=== PATIENT | male | born 1960 | race American Indian/Alaskan Native ===

== ENCOUNTER 2019-09-06 06:25 | Observation (INO) | payer BC ==
[2019-09-06] MEDS ORDERED: SODIUM CHLORIDE 0.9% 500 ML 500 ML ONE (06:55)
[2019-09-06] MEDS ORDERED: ASPIRIN EC 325 MG TAB PO ONE ×2 (06:55)
[2019-09-06] MEDS: SODIUM CHLORIDE 0.9% 500 ML 500 ML IV SCH ×2 (07:26→10:15)
[2019-09-06 07:38] LABS: INR 1.01 (0.87-1.13)
[2019-09-06 07:39] LABS: Partial Thromboplastin Time 29.7 Sec. (24.2-36.6)
[2019-09-06] MEDS ORDERED: HEPARIN/NS 5000 UNIT/500ML 1,000 ML IR ONE (09:58)
[2019-09-06] MEDS ORDERED: HEPARIN 10,000 UNITS/10 ML VIAL ONE ×2 (09:58→10:54)
[2019-09-06] MEDS ORDERED: MIDAZOLAM 2 MG/2 ML INJ ONE (09:58)
[2019-09-06] MEDS ORDERED: LIDOCAINE (2%) 20 MG/1 ML VIAL 20 ML MDV INFILTRATI ONE (09:59)
[2019-09-06] MEDS ORDERED: fentaNYL 100 MCG/2 ML INJ ONE (09:59)
[2019-09-06] MEDS ORDERED: NITROGLYCERIN SYRINGE 3 ML ONE (10:43)
--- NOTE | 2019-09-06 10:54 | Short Stay Summary ---
<GLADYS ACOSTA - Last Filed: 09/06/19 11:11> Short Stay Documentation Date of service: 09/06/19 - History H&P: obtained from office - Allergies and Medications Current Medications: Allergies No Known Allergies Allergy (Verified 09/06/19 06:49) Home Medications Medication Instructions Recorded Confirmed Last Taken Type Aspirin EC [Halfprin EC] 81 mg PO DAILY 09/06/19 09/06/19 09/01/19 History 81 mg Metformin HCl [metFORMIN] 1,000 mg PO BID 09/06/19 09/06/19 09/05/19 History 1000 mg Pravastatin [Pravachol] 20 mg PO HS 09/06/19 09/06/19 09/01/19 History 20 mg atenoloL [Tenormin] 25 mg PO HS 09/06/19 09/06/19 09/05/19 History 25 mg glipiZIDE [Glucotrol] 10 mg PO BID 09/06/19 09/06/19 09/05/19 History 10 mg lisinopriL [Zestril TAB] 5 mg PO HS 09/06/19 09/06/19 09/05/19 History 5 mg Active Medications Sodium Chloride (Nacl 0.9% 500 Ml) 500 mls @ 50 mls/hr IV DIRECT YARIEL Stop: 09/06/19 16:59 Last Admin: 09/06/19 10:15 Dose: 50 mls/hr Documented by: - Brief post op/procedure progress note Date of procedure: 09/06/19 Pre-op diagnosis: CAD Post-op diagnosis: same Procedure: LHC with PCI - see dictated cath report Anesthesia: local Estimated blood loss: none Condition: stable - Disposition Condition at discharge: Good Disposition: DC-01 TO HOME OR SELFCARE - Discharge Diagnoses (1) CAD (coronary artery disease) Status: Chronic (2) Stented coronary artery Status: Chronic (3) HTN (hypertension) Status: Chronic (4) Hyperlipidemia Status: Chronic (5) Diabetes Status: Chronic (6) Sinus bradycardia Status: Acute Comment: d/c home atenolol, hold BB Short Stay Discharge Plan Activity: advance as tolerated Diet: low fat, low cholesterol, low salt, diabetic Wound: open to air, keep clean and dry, per your surgeon's advice Follow up with: TERENCE SIMPSON MD [Primary Care Provider] - 7 Days DONALDO CARBAJAL MD [Staff Physician] - 7 Days (Telephone visit, 09/23/2019 @ 10:30AM) Prescriptions: AtorvaSTATin [Lipitor] 40 mg PO QHS #90 tablet Prasugrel [Effient] 10 mg PO QDAY #90 tablet lisinopriL [Zestril TAB] 10 mg PO QDAY #90 tablet <TUYET PARKS - Last Filed: 09/07/19 09:04> Short Stay Documentation - Allergies and Medications Current Medications: Allergies No Known Allergies Allergy (Verified 09/06/19 06:49) Home Medications Medication Instructions Recorded Confirmed Last Taken Type Aspirin [Aspirin BABY CHEW TAB] 81 mg PO QDAY tab.chew 09/06/19 Unknown Rx AtorvaSTATin [Lipitor] 40 mg PO QHS #90 tablet 09/06/19 Unknown Rx Metformin HCl [metFORMIN] 1,000 mg PO BID 09/06/19 09/06/19 09/05/19 History 1000 mg Prasugrel [Effient] 10 mg PO QDAY #90 tablet 09/06/19 Unknown Rx glipiZIDE [Glucotrol] 10 mg PO BID 09/06/19 09/06/19 09/05/19 History 10 mg lisinopriL [Zestril TAB] 10 mg PO QDAY #90 tablet 09/06/19 Unknown Rx Active Medications Acetaminophen/Hydrocodone Bitart ([place] 5/325) 1 each PO Q6H PRN PRN Reason: Pain, Moderate (4-6) Last Admin: 09/06/19 22:23 Dose: 1 each Documented by: Aspirin (Baby Aspirin) 81 mg PO QDAY [facility] Atorvastatin Calcium (Lipitor) 40 mg PO QHS [facility] Last Admin: 09/06/19 22:23 Dose: 40 mg Documented by: Lisinopril (Zestril) 10 mg PO QDAY [facility] Last Admin: 09/06/19 23:23 Dose: Not Given Documented by: Prasugrel (Effient) 10 mg PO QDAY [facility] - Discharge Diagnoses (1) CAD (coronary artery disease) Status: Chronic Qualifiers: Coronary Disease-Associated Artery/Lesion type: grayling artery [place] vs. transplanted heart: grayling heart Associated angina: with stable angina Qualified Code(s): I25.118 - Atherosclerotic heart disease of grayling coronary artery with other forms of angina pectoris (2) Diabetes Status: Chronic Qualifiers: Diabetes mellitus type: type 2 Diabetes mellitus complication status: without complication (3) HTN (hypertension) Status: Chronic Qualifiers: Hypertension type: essential hypertension Qualified Code(s): I10 - Essential (primary) hypertension (4) Hyperlipidemia Status: Chronic Qualifiers: Hyperlipidemia type: mixed hyperlipidemia Qualified Code(s): E78.2 - Mixed hyperlipidemia Short Stay Discharge Plan Special Instructions: hold Metformin (for two days)
[2019-09-06] MEDS ORDERED: PRASUGREL 10 MG TAB PO ONE (10:58)
[2019-09-06] MEDS ORDERED: ALUM-MAG HYDROXIDE-SIMETHICONE 200-200-20MG/5ML ORAL LIQD 30 ML ONE (10:58)
--- NOTE | 2019-09-06 11:08 | Cardiac Catherization Report ---
CARDIAC CATHETERIZATION REFERRING PHYSICIAN: Dr. Shani Jacques INDICATION FOR PROCEDURE: The patient is a very pleasant 58-year-old -[place] gentleman with multiple risk factors, history of PCI with episodic chest pain/unstable angina, abnormal treadmill stress test, on multiple antianginals, referred for left heart catheterization. Risks, benefits, potential alternatives explained at length prior to obtaining informed consent. PROCEDURE IN DETAIL: It should be noted that he has had a radial procedure in the past, which failed. We chose a groin approach, 8 mL of 2% lidocaine used to anesthetize the right groin. A standard 6-Dutch sheath placed in the right common femoral artery via modified Seldinger technique. All exchanges performed to exchange a J-tip guidewire. A JL3.5 catheter was used to engage the left main. No dampening or ventricularization. Cineangiography performed in multiple projections. JR4 catheter used to cross the aortic valve under fluoroscopic guidance. Left ventriculography in 30 VILLAFANA and 30 TIGIST projections via hand injections, catheter flushed. Manual pullback performed with continuous pressure monitoring. Catheter used to engage the right coronary. No dampening or ventricularization. Cineangiography performed in all projections. DATA: Aortic pressure is 140/60, LV pressure is 140, LVEDP of 16 mmHg, left ventriculography reveals normal systolic performance with estimated ejection fraction of 55-60%. No evidence of aortic stenosis. Tele reveals sinus bradycardia throughout. Heart rate in the 40s and 50s. CORONARY ANATOMY: This is a codominant system. Left main without significant disease, bifurcates left anterior descending and left circumflex. Left circumflex, moderate sized vessel, courses AV groove. There is an eccentric long complex 80-90% stenosis in the mid left circumflex. This is the culprit lesion. LAD is a moderate sized vessel, courses anterior intergroove, wraps around the apex. Stents in the mid LAD are widely patent, no obstructive disease in the LAD or diagonal system. Right coronary is a moderate sized vessel, comes off high off the right coronary cusp. No obstructive disease identified in the right coronary. At this point, given the patient's presentation with multiple episodes of chest tightness/chest pain, abnormal stress test on despite multiple antianginals, we decided to proceed with PCI of culprit mid left circumflex. At this point, heparin is given. Abnormal ACT is confirmed. We used an EBU 3.75 guide to engage the left main. A [place] wire used to cross the lesion without difficulty. I placed a 2.75 x 26 Resolute Bradford stent across the lesion and deployed at 12 KIERSTEN for 30 seconds. Excellent angiographic result. Next, intravascular ultrasound was performed, multiple passes were made and the stent reveals a well-opposed, well expanded stent. No complications. Final angiogram reveals excellent result. The patient is loaded with Effient. The patient has already been loaded with aspirin. The patient is clinically stable, chest pain free. I directly supervised the administration of moderate sedation from 10:20 a.m. to 10:55 a.m. CONCLUSIONS: 1. Severe culprit single vessel coronary artery disease, a 90% complex long mid left circumflex. A. Successful IVUS guided PCI with placement of drug-eluting stent (Resolute 2.75 x 26) with excellent final angiographic and ultrasonographic result. B. Patent LAD stents with nonobstructive disease throughout the remainder of the coronary tree. 2. Normal left ventricular systolic performance, estimated ejection fraction of 55-60%. No evidence of aortic stenosis. 3. Sinus bradycardia throughout. The patient is clinically stable, chest pain free. Hold atenolol for now, aggressive primary and secondary prevention measures, standard groin care post-sheath once ACT less than 170. Results of the procedure were explained at length to the patient. All questions and concerns were addressed. Likely discharge in a.m. Follow up with Dr. Vicky Jacques in the office. JOB# [id number] SBM/NTS
[2019-09-06] MEDS: LISINOPRIL 10 MG TAB PO SCH ×2 (13:21→23:23)
[2019-09-06] MEDS ORDERED: HYDROcodone/ACETAMINOPHEN 5-325 MG TAB PO ONE (13:54)
[2019-09-06] MEDS ORDERED: HYDROcodone/ACETAMINOPHEN 5-325 MG TAB ONE (14:22)
[2019-09-06] MEDS ORDERED: HYDROcodone/ACETAMINOPHEN 5-325 MG TAB PO PRN (22:04)
[2019-09-07 05:55] LABS: Basophils % (Auto) 0.2 % (0.0-1.8); Eosinophils # (Auto) 0.1 K/mm3 (0.0-0.4); Eosinophils % (Auto) 1.5 % (0.0-4.3); Hematocrit 40.4 % (35.5-45.6); Hemoglobin 13.4 gm/dl (11.8-15.2); Lymphocytes # (Auto) 0.7 K/mm3 (1.2-5.4); Lymphocytes % (Auto) 9.3 % (13.4-35.0); Mean Corpuscular HGB Conc 33 % (32-34); Mean Corpuscular Volume 84 fl (84-94); Monocytes # (Auto) 0.5 K/mm3 (0.0-0.8); Monocytes % (Auto) 6.5 % (0.0-7.3); Platelet Count 216 K/mm3 (140-440); Red Blood Count 4.82 M/mm3 (3.65-5.03); Red Cell Distribution Width 13.9 % (13.2-15.2)
[2019-09-07 06:08] LABS: Creatine Kinase MB 5.9 ng/mL (0.0-4.0)
[2019-09-07 06:09] LABS: BUN/Creatinine Ratio 21; Blood Urea Nitrogen 19 mg/dL (9-20); Calcium 9.2 mg/dL (8.4-10.2); Hemolysis Index 9
--- NOTE | 2019-09-07 09:07 | XRay Report ---
CHEST 1 VIEW INDICATION: post pci. COMPARISON: None FINDINGS: SUPPORT DEVICES: There is a thin catheter projecting over the upper abdomen and in the midline lower mediastinum of uncertain significance. HEART: Within normal limits. LUNGS/PLEURA: No acute air space or interstitial disease. ADDITIONAL FINDINGS: None. IMPRESSION: 1. No acute findings. Signer Name: Kalen Day MD Signed: 09/07/2019 9:02 AM Workstation Name: [id number]
--- NOTE | 2019-09-07 09:54 | Progress Note ---
Assessment and Plan Patient right groin site shows no hematoma soft patient denies any chest pain labs reviewed advised patient to hold metformin for 48 hours continue aspirin and Effient patient will be discharged home and follow with primary risk control specialist next week - Patient Problems (1) CAD (coronary artery disease) Current Visit: Yes Status: Chronic Qualifiers: Coronary Disease-Associated Artery/Lesion type: cheesh-na artery [place] vs. transplanted heart: cheesh-na heart Associated angina: with stable angina Qualified Code(s): I25.118 - Atherosclerotic heart disease of cheesh-na coronary artery with other forms of angina pectoris (2) Diabetes Current Visit: Yes Status: Chronic Qualifiers: Diabetes mellitus type: type 2 Diabetes mellitus complication status: without complication (3) HTN (hypertension) Current Visit: Yes Status: Chronic Qualifiers: Hypertension type: essential hypertension Qualified Code(s): I10 - Essential (primary) hypertension (4) Hyperlipidemia Current Visit: Yes Status: Chronic Qualifiers: Hyperlipidemia type: mixed hyperlipidemia Qualified Code(s): E78.2 - Mixed hyperlipidemia Subjective Date of service: 09/07/19 Principal diagnosis: cp Interval history: Patient is denying any chest pain post PCI Objective Vital Signs Temp Pulse Pulse Pulse Resp BP Pulse Ox 09/07/19 07:13 54 L 18 117/66 100 09/07/19 04:11 97.9 F 51 L 18 118/62 100 09/07/19 00:10 98.7 F 09/06/19 23:44 72 18 124/61 99 09/06/19 22:23 18 09/06/19 20:56 96 09/06/19 20:51 68 09/06/19 20:04 98.0 F 68 18 129/66 100 09/06/19 18:00 53 L 128/54 99 09/06/19 17:30 51 L 132/60 99 09/06/19 17:26 58 L 09/06/19 17:12 49 L 130/52 99 09/06/19 16:52 46 L 48 L 18 98 09/06/19 16:30 51 L 134/64 99 09/06/19 16:00 45 L 127/63 99 09/06/19 15:55 47 L 99 09/06/19 15:15 48 L 12 128/62 100 09/06/19 15:00 48 L 11 L 132/70 100 09/06/19 14:45 44 L 24 146/73 100 09/06/19 14:33 45 L 21 161/70 09/06/19 14:30 45 L 13 162/74 09/06/19 14:25 45 L 16 161/82 100 09/06/19 14:20 47 L 14 156/63 09/06/19 14:15 48 L 12 164/71 09/06/19 14:13 46 L 18 177/82 09/06/19 14:03 45 L 10 L 168/76 09/06/19 14:00 56 L 12 168/81 95 09/06/19 13:55 49 L 11 L 180/91 94 09/06/19 13:50 47 L 10 L 180/73 09/06/19 13:46 64 11 L 168/80 09/06/19 13:41 45 L 11 L 175/77 09/06/19 13:21 47 L 178/85 09/06/19 13:15 48 L 16 178/85 09/06/19 12:45 47 L 21 164/75 09/06/19 12:15 45 L 12 155/75 99 09/06/19 12:00 45 L 24 161/79 09/06/19 11:45 41 L 12 158/78 09/06/19 11:30 41 L 18 155/78 09/06/19 11:19 97.6 F 44 L 17 175/75 100 - Physical Examination General: Appears Well, No Apparent Distress HEENT: Positive: PERRL Neck: Positive: neck supple Cardiac: Positive: Reg Rate and Rhythm Lungs: Positive: Normal Exam Neuro: Positive: Grossly Intact Abdomen: Positive: Soft /Rectal: Normal Prostate, No Masses Skin: Musculoskeletal: No Fluid Collection, No Pain, Normal Range of Motion Gait: Normal Gait Extremities: Present: normal. Absent: edema - Labs and Meds Cardiac Enzymes 09/07/19 Range/Units 04:59 CK-MB (CK-2) 5.9 H (0.0-4.0) ng/mL CBC 09/07/19 Range/Units 04:59 WBC 7.9 (4.5-11.0) K/mm3 RBC 4.82 (3.65-5.03) M/mm3 Hgb 13.4 (11.8-15.2) gm/dl Hct 40.4 (35.5-45.6) % Plt Count 216 (140-440) K/mm3 Lymph # 0.7 L (1.2-5.4) K/mm3 Luce # 0.5 (0.0-0.8) K/mm3 Eos # 0.1 (0.0-0.4) K/mm3 Baso # 0.0 (0.0-0.1) K/mm3 Comprehensive Metabolic Panel 09/07/19 Range/Units 04:59 Sodium 135 L (137-145) mmol/L Potassium 4.3 (3.6-5.0) mmol/L Chloride 99.3 (98-107) mmol/L Carbon Dioxide 26 (22-30) mmol/L BUN 19 (9-20) mg/dL Creatinine 0.9 (0.8-1.5) mg/dL Glucose 258 H (75-100) mg/dL Calcium 9.2 (8.4-10.2) mg/dL - Imaging and Cardiology Cardiac cath: report reviewed - Telemetry EKG Rhythm: Sinus Rhythm
[2019-09-07] MEDS: LISINOPRIL 10 MG TAB PO SCH (09:56)
[2019-09-07 09:57] VITALS: BP 142/69
[2019-09-07] MEDS ORDERED: PRASUGREL 10 MG TAB PO SCH (10:00)
[2019-09-07] MEDS ORDERED: ASPIRIN 81 MG TAB CHEW PO SCH (10:00)
== END 2019-09-07 12:38 | disposition home or self-care (01) ==
LOC: CATHLABREC 06:25 → 4A 11:01
PROVIDERS: ADMIT Internal Medicine; ATTEND Internal Medicine
DX: I25.10 Atherosclerotic heart disease of native coronary artery without angina pectoris (principal); I10 Essential (primary) hypertension; E11.9 Type 2 diabetes mellitus without complications; E78.5 Hyperlipidemia, unspecified; R00.1 Bradycardia, unspecified; Z95.1 Presence of aortocoronary bypass graft; Z79.84 Long term (current) use of oral hypoglycemic drugs; Z79.82 Long term (current) use of aspirin; Z79.899 Other long term (current) drug therapy
CPT/HCPCS: 36415; 71045; 80048; 82550; 82553; 82962; 84484; 85025; 85610; 85730; 92978; 93005; 93458; A9270; C1753; C1769; C1874; C1887; C1894; C9600; G0378; J1644; J2250; J3010; J7040; 85347; 92928; Q9967

== ENCOUNTER 2020-03-02 06:47 | Day surgery (SDC) | payer BC ==
[2020-03-02] MEDS ORDERED: HEPARIN/NS 5000 UNIT/500ML 1,000 ML IR ONE (07:32)
[2020-03-02] MEDS ORDERED: HEPARIN 10,000 UNITS/10 ML VIAL ONE (07:33)
[2020-03-02 07:38] LABS: BUN/Creatinine Ratio 21; Blood Urea Nitrogen 21 mg/dL (9-20); Calcium 9.6 mg/dL (8.4-10.2); Hemolysis Index 5
[2020-03-02] MEDS ORDERED: ASPIRIN EC 325 MG TAB PO SCH (08:00)
[2020-03-02] MEDS ORDERED: SODIUM CHLORIDE 0.9% 500 ML 500 ML IV SCH (08:00)
[2020-03-02] MEDS: fentaNYL 100 MCG/2 ML INJ ONE ×2 (08:09→08:12)
[2020-03-02] MEDS: MIDAZOLAM 2 MG/2 ML INJ ONE ×2 (08:09→08:12)
[2020-03-02] MEDS: LIDOCAINE (2%) 20 MG/1 ML VIAL 20 ML MDV INFILTRATI ONE ×3 (08:10→08:19)
[2020-03-02] MEDS ORDERED: ATROPINE 0.1% (1 MG/10 ML) CARDIAC SYRINGE ONE (08:15)
--- NOTE | 2020-03-02 09:17 | Cardiac Catherization Report ---
INDICATION FOR PROCEDURE: The patient is a 59-year-old -[place] gentleman with history of known coronary artery disease and intervention of the LAD many years ago and underwent drug-eluting stent placement of the mid left circumflex artery, which showed 90% complex lesion, underwent on 09/06/2019. Presently, the patient is having atypical chest pains and stress EKG showed 2-[address] depressions in the inferolateral leads. Hence, scheduled for cardiac catheterization for definitive diagnosis and treatment. Echocardiogram was unremarkable. DESCRIPTION OF PROCEDURE: The patient was brought to the catheterization laboratory in a fasting condition. The patient was known to have attempted right radial access in the past and procedure could not be completed. Hence groin was used during the last admission. Hence, a right groin access was used to obtain arterial access. The patient was prepared in the standard fashion. The patient was evaluated for moderate sedation and was felt to be an appropriate candidate. Received IV Versed and fentanyl. Subsequently, the patient was prepared with sterile drapes in standard fashion. Local anesthesia was given in the right groin area. Right femoral artery puncture was made using micropuncture needle under fluoroscopy guidance. A 6-[place] sheath was introduced. Subsequently, multipurpose catheter was used to obtain the angiograms of the left ventricle done in VILLAFANA projection using hand injection followed by using JL4 catheter for obtaining the angiograms of the left coronary artery in multiple views. A modified JR4 catheter was used to obtain the angiograms of the right coronary artery. Right coronary artery is arising somewhat high and anterior from the right coronary cusp. At the end of the procedure, angiogram was obtained of the right femoral artery; however, the bifurcation of the common femoral artery was very high. Hence, no closure device was applied. The patient tolerated the procedure well. No untoward complications were noted. During the procedure, the patient was monitored with pulse oximetry, EKG monitoring and hemodynamic monitoring. The patient tolerated the moderate sedation well. At the end of the procedure, the patient is communicating normally. Breathing normally and no focal deficits were noted. The patient's moderate sedation started at 8:12 a.m. and ended at 8:38 a.m. The patient was transferred to the room in stable condition. Findings were explained in detail to the patient. Will be continued on medical therapy and risk factor modification. HEMODYNAMICS: 1. Opening aortic pressure 125/57. Left ventricular pressure 125/21. No gradient across the aortic valve. Estimated ejection fraction 55%. 2. Left ventriculogram done in VILLAFANA projection using hand injection showed normal sized left ventricle with normal contractility. Mitral regurgitation could not be evaluated because of the limited amount of dye injected. Ejection fraction was estimated to be 50-55%. 3. Right coronary artery, as mentioned above, arises high and anteriorly in the right coronary cusp. This is a codominant vessel and angiographically smooth and normal. 4. Left coronary artery arises normally from left coronary cusp. Left main is very short, immediately dividing into LAD and circumflex branches. Very mild 5-10% smooth lesion noted in the distal left main. LAD shows mild 20% ostial lesion. LAD curves around the apex. There is a high mid LAD stent, which which shows very smooth 20% stenosis and there is other second mid LAD stent, which appears to be patent without significant disease. In between the stents, there appears to be 30% smooth stenosis. Circumflex artery shows a long stent in the mid circumflex artery: This is widely patent. Collaterals none. FINAL IMPRESSION: Normal sized left ventricle with normal contractility with widely patent stent in the mid circumflex artery in addition to patent stents in the high mid LAD and mid LAD. [id number] 20-30% mid LAD lesion was noted. At this time, no obstructive lesions were noted. Considering the above angiographic pictures, will be continued on risk factor modification and medical therapy. The patient tolerated the procedure well. No untoward complications were noted. JOB# [id number] MICHEL/EVI ELIZONDO
--- NOTE | 2020-03-02 13:28 | Short Stay Summary ---
Short Stay Documentation Date of service: 03/02/20 - History H&P: obtained from office - Allergies and Medications Current Medications: Allergies No Known Allergies Allergy (Verified 09/06/19 06:49) Home Medications Medication Instructions Recorded Confirmed Last Taken Type Aspirin [Aspirin BABY CHEW TAB] 81 mg PO QDAY tab.chew 09/06/19 03/02/20 03/01/20 Rx AtorvaSTATin [Lipitor] 40 mg PO QHS #90 tablet 09/06/19 03/02/20 03/01/20 Rx Metformin HCl [metFORMIN] 1,000 mg PO BID 09/06/19 03/02/20 03/01/20 History Prasugrel [Effient] 10 mg PO QDAY #90 tablet 09/06/19 03/02/20 03/01/20 Rx glipiZIDE [Glucotrol] 10 mg PO BID 09/06/19 03/02/20 03/01/20 History lisinopriL [Zestril TAB] 10 mg PO QDAY #90 tablet 09/06/19 03/02/20 03/01/20 Rx ISOSORBIDE MONOnitrate [Imdur ER] 30 mg PO DAILY 03/02/20 03/02/20 03/01/20 History amLODIPine [Norvasc] 5 mg PO DAILY 03/02/20 03/02/20 03/01/20 History atenoloL [Tenormin] 25 mg PO DAILY 03/02/20 03/02/20 03/02/20 History Active Medications Sodium Chloride (Nacl 0.9% 500 Ml) 500 mls @ 50 mls/hr IV DIRECT YARIEL Stop: 03/02/20 17:59 Last Admin: 03/02/20 08:09 Dose: 100 mls Documented by: - Brief post op/procedure progress note Date of procedure: 03/02/20 Pre-op diagnosis: CAD Post-op diagnosis: same Procedure: [facility] - see dictated cath report Anesthesia: local Estimated blood loss: none Condition: stable - Disposition Condition at discharge: Good Disposition: DC-01 TO HOME OR SELFCARE - Discharge Diagnoses (1) CAD (coronary artery disease) Status: Chronic Qualifiers: (2) Stented coronary artery Status: Chronic (3) Diabetes Status: Chronic (4) HTN (hypertension) Status: Chronic Qualifiers: (5) Hyperlipidemia Status: Chronic Qualifiers: Short Stay Discharge Plan Activity: advance as tolerated Diet: low fat, low cholesterol, low salt, diabetic Wound: open to air, keep clean and dry, per your surgeon's advice Follow up with: TERENCE SIMPSON MD [Primary Care Provider] - 7 Days Forms: CardCath PCI D/C Instructions
[2020-03-02 14:41] VITALS: BP 173/77
== END 2020-03-02 06:48 | disposition home or self-care (01) ==
LOC: CATHLABREC 06:47
PROVIDERS: ATTEND Internal Medicine
DX: R07.89 Other chest pain (principal); R94.39 Abnormal result of other cardiovascular function study; I25.10 Atherosclerotic heart disease of native coronary artery without angina pectoris; I10 Essential (primary) hypertension; E78.5 Hyperlipidemia, unspecified; E11.9 Type 2 diabetes mellitus without complications; M19.90 Unspecified osteoarthritis, unspecified site; Z98.890 Other specified postprocedural states; Z83.3 Family history of diabetes mellitus; Z80.8 Family history of malignant neoplasm of other organs or systems; Z82.5 Family history of asthma and other chronic lower respiratory diseases; Z79.899 Other long term (current) drug therapy; Z79.84 Long term (current) use of oral hypoglycemic drugs; Z79.82 Long term (current) use of aspirin; Z95.5 Presence of coronary angioplasty implant and graft; Z82.49 Family history of ischemic heart disease and other diseases of the circulatory system
CPT/HCPCS: 36415; 80048; 93005; 93458; 99156; 99157; C1894; J1644; J2250; J3010; J7040; J0461; Q9967